=== PATIENT | female | born 1955 | race African-American/Black ===

== ENCOUNTER 2018-06-25 19:07 | Emergency (ER) | payer SELFPAY ==
--- NOTE | 2018-06-25 20:21 | RAD ---
LEFT HAND THREE VIEW: History: Pain. Comparison: None. FINDINGS: There is no acute fracture or malalignment. Soft tissues are unremarkable. There appears to be some mild caudad regression of the pisiform. Mild narrowing of the thumb carpal metacarpal joint as well as dorsal and lateral subluxation. Mild widening of the scapholunate interval. IMPRESSION: Chronic findings. No acute abnormality. POS: [facility]
== END 2018-06-25 21:25 | disposition home or self-care (01) ==
LOC: ERS 19:07
DX: M77.9 Enthesopathy, unspecified (principal); I10 Essential (primary) hypertension
CPT/HCPCS: 29125

== ENCOUNTER 2018-11-23 21:39 | Emergency (ER) | payer SELFPAY | END 2018-11-23 22:22 | disposition home or self-care (01) | LOC: ERS 21:39 | DX: Z01.30 Encounter for examination of blood pressure without abnormal findings (principal); R51 Headache; I10 Essential (primary) hypertension; F41.9 Anxiety disorder, unspecified; Z79.899 Other long term (current) drug therapy | CPT/HCPCS: 99283 ==

== ENCOUNTER 2019-03-01 16:26 | Emergency (ER) | payer SELFPAY ==
--- NOTE | 2019-03-01 16:54 | RAD ---
Exam: Chest one view HISTORY:Heart flutter Comparison: None FINDINGS: Cardiac silhouette: Normal Aorta: Unremarkable Pulmonary vessels: Normal Costophrenic angles: Clear LUNGS: No masses or consolidation. Pneumothorax: None Osseous abnormalities: None IMPRESSION: No acute cardiopulmonary process.
[2019-03-01] MEDS ORDERED: Ondansetron ODT 4 MG TAB ONE (17:02)
--- NOTE | 2019-03-01 17:14 | RAD ---
4 views of the right knee: 03/01/2019 COMPARISON: None HISTORY: Knee pain and swelling FINDINGS: No fracture or dislocation. No radiopaque foreign body or subcutaneous gas. IMPRESSION: No acute findings.
[2019-03-01 17:27] LABS: #Eosinphils 0.1 thou/uL (0.0-0.7); #Lymphocytes 3.5 thou/uL (1.20-3.40); #Monocytes 0.7 thou/uL (0.11-0.59); #Neutrophils 8.1 thou/uL (1.40-6.50); %Basophils 0.4 % (0.0-1.0); %Eosinophils 0.6 % (0.0-10.0); %Lymphocytes 28.5 % (21.0-51.0); %Monocytes 5.6 % (0.0-10.0); %Neutrophils 64.9 % (42.0-75.0); Hemoglobin 13.1 g/dL (12.0-16.0); Mean Corpuscular HGB CONC 32.8 g/dL (32.0-36.0); Mean Corpuscular Hemoglobin 29.6 pg (27.0-31.0); Mean Corpuscular Volume 90.1 fL (78.0-98.0); Mean Platelet Volume 6.6 fL (7.4-10.4); Platelet Count 382 thou/uL (130-400); RBC Distribution Width 13.9 % (11.5-14.5); Red Blood Cell (RBC) Count 4.42 mill/uL (4.20-5.40); White Blood Cell (WBC) Count 12.4 thou/uL (4.8-10.8)
[2019-03-01 17:46] LABS: ALT (SGPT) 14 U/L (8-55); AST (SGOT) 15 U/L (5-34); Albumin 4.1 g/dL (3.4-4.8); Alkaline Phosphatase 97 U/L (40-110); Anion Gap 11 mmol/L (10-20); BUN (Urea Nitrogen) 18 mg/dL (9.8-20.1); Bilirubin, Total 0.3 mg/dL (0.2-1.2); CK (CPK) 80 U/L (29-168); Calc. Creatinine Clearance 0 mL/min (70-130); Calcium 9.7 mg/dL (7.8-10.44); Carbon Dioxide 26 mmol/L (23-31); Chloride 107 mmol/L (98-107); Estimated GFR-MDRD 75; Globulin 3.8 g/dL (2.4-3.5); Glucose 81 mg/dL (80-115); Lipase 75 U/L (8-78); Magnesium 2.1 mg/dL (1.6-2.6); Potassium 3.8 mmol/L (3.5-5.1); Protein, Total 7.9 g/dL (6.0-8.3); Sodium 140 mmol/L (136-145)
== END 2019-03-01 18:46 | disposition home or self-care (01) ==
LOC: ERS 16:26
DX: E05.90 Thyrotoxicosis, unspecified without thyrotoxic crisis or storm (principal); I10 Essential (primary) hypertension; G47.30 Sleep apnea, unspecified; F41.9 Anxiety disorder, unspecified; R11.0 Nausea; Z79.899 Other long term (current) drug therapy
CPT/HCPCS: 71045; 80053; 82550; 83690; 83735; 84443; 84484; 85025; 93005; 94760; Q0162

== ENCOUNTER 2019-07-09 10:14 | Outpatient (CLI) | payer OTHER ==
--- NOTE | 2019-07-09 11:10 | MMO ---
Bilateral MAMMO Bilat Diag DDI+CARTER. CLINICAL HISTORY: Patient is 64 years old and is seen for diagnostic exam,palpable abnormality and pain in the left breast. The patient has no family history of breast cancer. The patient has no personal history of cancer. VIEWS: The views performed were: bilateral craniocaudal with tomosynthesis; bilateral mediolateral oblique with tomosynthesis; and bilateral mediolateral with tomosynthesis. FILMS COMPARED: The present examination has been compared to a prior imaging study performed at [facility] on 07/09/2019. This study has been interpreted with the assistance of computer-aided detection. MAMMOGRAM FINDINGS: There are scattered fibroglandular densities. Focal distortion at site of palpable mass. Ultrasound reveals hypoechoic mass. Biopsy recommended. In the right breast, there are no suspicious masses, calcifications or areas of architectural distortion. IMPRESSION: FINDING IN THE LEFT BREAST IS SUSPICIOUS. BIOPSY IS RECOMMENDED. THE RESULTS OF THIS EXAM WERE SENT TO THE PATIENT. ACR BI-RADS Category 4 - Suspicious abnormality - biopsy should be considered MAMMOGRAPHY NOTE: 1. A negative mammogram report should not delay a biopsy if a dominant of clinically suspicious mass is present. 2. Approximately 10% to 15% of breast cancers are not detected by mammography. 3. Adenosis and dense breasts may obscure an underlying neoplasm. Reported by: CAMERON ROBLES MD Electonically Signed: [id number]
--- NOTE | 2019-07-09 12:00 | ULT ---
ULTRASOUND LEFT BREAST: INDICATION: Ultrasound left breast performed to assess a palpable abnormality. Mammographic abnormality was also seen at this site. FINDINGS: There is a focal hypoechoic mass at 11 o'clock 4 cm from the nipple which corresponds to the palpable abnormality. It measures approximately 6 x 8 mm maximal dimension. It has an irregular border. Ul trasound-guided biopsy of this lesion is recommended. IMPRESSION: BIRADS 4, suspicious abnormality. Biopsy recommended. Findings discussed with Dr. Peng. CODE CR
== END 2019-07-09 10:15 | disposition home or self-care (01) ==
LOC: BICMAMMO 10:14
PROVIDERS: ATTEND Family Medicine
DX: N63.22 Unspecified lump in the left breast, upper inner quadrant (principal)
CPT/HCPCS: 77066; G0279

== ENCOUNTER → 2019-07-11 | Day surgery (SDC) | payer OTHER ==
--- NOTE | 2019-07-11 13:50 | MMO ---
Left Breast MAMMO Unilat Diag DDI LT. CLINICAL HISTORY: Patient is 64 years old and is seen for diagnostic exam. VIEWS: The views performed were: . FILMS COMPARED: The present examination has been compared to a prior imaging study performed at [facility] on 07/09/2019. This study has been interpreted with the assistance of computer-aided detection. MAMMOGRAM FINDINGS: There are scattered fibroglandular densities. Clip in inner upper left breast. IMPRESSION: FINDING IN THE LEFT BREAST IS CONFIRMED UTILIZING POST PROCEDURE MAMMOGRAM. THE RESULTS OF THIS EXAM WERE SENT TO THE PATIENT. MAMMOGRAPHY NOTE: 1. A negative mammogram report should not delay a biopsy if a dominant of clinically suspicious mass is present. 2. Approximately 10% to 15% of breast cancers are not detected by mammography. 3. Adenosis and dense breasts may obscure an underlying neoplasm. Reported by: LIU SNEED MD Electonically Signed: [id number]
--- NOTE | 2019-07-11 13:52 | ULT ---
EXAM: Ultrasound-guided left breast biopsy PROVIDED CLINICAL HISTORY: Left breast mass COMPARISON: Ultrasound and mammogram 07/09/2019 FINDINGS: Informed consent was obtained from the patient. Patient was placed on the sonography table in the sup ine position and the previously described 11:00 left breast mass was re-localized. The skin overlying this region was prepped and draped in the usual sterile manner. The soft tissues were infil trated with 1% buffered lidocaine. A small skin incision was made. Under continuous ultrasound guidance 3 core samples were obtained of the mass. Under continuous ultrasound guidance, a biopsy sit e marker was deployed adjacent to the mass. No immediate complications. Post biopsy mammograms demonstrate appropriate clip deployment. IMPRESSION: Technically successful ultrasound-guided left breast biopsy and clip placement. Please correlate with histology results to follow.
== END ==
LOC: BICULT 12:45
PROVIDERS: ATTEND Family Medicine
PROC: 0H9U3ZX Drainage of Left Breast, Percutaneous Approach, Diagnostic (ICD-10-PCS; principal; 2019-07-11)
DX: N63.22 Unspecified lump in the left breast, upper inner quadrant (principal); N64.1 Fat necrosis of breast
CPT/HCPCS: 19083; 88305

== ENCOUNTER 2019-08-28 10:35 | Outpatient (CLI) | payer OTHER ==
--- NOTE | 2019-08-29 12:13 | NM ---
RADIOIODINE THYROID UPTAKE AND SCAN: HISTORY: Hyperthyroidism. Free T3 is elevated measuring 4.14 (normal 1.7-3.7). TSH is low measuring 0.0048 (no rmal 0.35-4.94). RADIOPHARMACEUTICAL: 226 microcuries of Iodine-123 administered orally. FINDINGS: Planar anterior and both anterior oblique images of the thyroid gland demonstrate a focal hot nodule in the left lobe with decreased uptake in the remainder of the gland. The 24-hour uptake measures 27% (normal 10-30%). IMPRESSION: Findings are consistent with a toxic nodule. POS: [facility]
== END 2019-08-28 10:36 | disposition home or self-care (01) ==
LOC: NM 10:35
PROVIDERS: ATTEND Internal Medicine Endocrinology, Diabetes & Metabolism
DX: E05.90 Thyrotoxicosis, unspecified without thyrotoxic crisis or storm (principal)
CPT/HCPCS: 78014; A9516

== ENCOUNTER 2019-09-15 21:03 | Emergency (ER) | payer OTHER ==
--- NOTE | 2019-09-16 09:20 | ULT ---
LEFT LOWER EXTREMITY VENOUS DOPPLER ULTRASOUND: DATE: 09/15/2019. COMPARISON: None. HISTORY: Left leg pain, evaluate for DVT. TECHNIQUE: Multiplanar, mccord scale, sonographic imaging venous structures of the left lower extremity obtained w ith color flow and spectral analysis. FINDINGS: Left common femoral vein, greater saphenous vein, profunda femoral vein, femoral vein, popliteal vein , and posterior tibial vein are patent. Normal blood flow, augmentation, and compression with no michael dence for DVT of the left lower extremity. IMPRESSION: No evidence for deep venous thrombosis of the left lower extremity. POS: [facility]
== END 2019-09-15 23:53 | disposition home or self-care (01) ==
LOC: ERS 21:03
DX: M54.42 Lumbago with sciatica, left side (principal); I10 Essential (primary) hypertension; G47.00 Insomnia, unspecified; F41.9 Anxiety disorder, unspecified; Z79.899 Other long term (current) drug therapy

== ENCOUNTER 2019-10-01 12:16 | Outpatient (CLI) | payer OTHER ==
--- NOTE | 2019-10-01 13:11 | NM ---
Exam: Nuclear medicine I-131 treatment HISTORY: Toxic nodule COMPARISON: None Findings/technique: risk and benefits were discussed with the patient. Precautions to be taken were a lso discussed. After answering the patient's questions patient was administered 14.1 mCi of I-131 tablet orally. IMPRESSION: Patient was ministered I-131 for treatment of toxic nodule.
== END 2019-10-01 12:17 | disposition home or self-care (01) ==
LOC: NM 12:16
PROVIDERS: ATTEND Internal Medicine Endocrinology, Diabetes & Metabolism
DX: E05.10 Thyrotoxicosis with toxic single thyroid nodule without thyrotoxic crisis or storm (principal)
CPT/HCPCS: 79005; A9517

== ENCOUNTER 2020-02-05 08:12 | Outpatient (CLI) | payer OTHER ==
--- NOTE | 2020-02-05 09:33 | MMO ---
Left Breast MAMMO Unilat Diag DDI LT+CARTER. CLINICAL HISTORY: Patient is 64 years old and is seen for follow-up at short-interval from prior study and lump or thickening in the left breast. The patient has no family history of breast cancer. The patient has no personal history of cancer. The patient has a history of left Ultrasound Guided Core Biopsy in July, - benign. VIEWS: The views performed were: left craniocaudal with tomosynthesis; left mediolateral oblique with tomosynthesis; and left mediolateral with tomosynthesis. FILMS COMPARED: The present examination has been compared to prior imaging studies performed at [facility] on 07/09/2019, 07/11/2019 and 02/05/2020. This study has been interpreted with the assistance of computer-aided detection. MAMMOGRAM FINDINGS: There are scattered fibroglandular densities. Left biopsy clip. US WAS PERFORMED TO EVALUATE SITES OF PALPABLE CONCERN pLEASE SEE US REPORT. IMPRESSION: FINDING IN THE LEFT BREAST IS PROBABLY BENIGN. FOLLOW-UP IN 6 MONTHS IS RECOMMENDED. THE RESULTS OF THIS EXAM WERE SENT TO THE PATIENT. ACR BI-RADS Category 3 - Probably benign finding - short interval follow-up suggested. [facility] will notify the patient of the need for additional imaging services. MAMMOGRAPHY NOTE: 1. A negative mammogram report should not delay a biopsy if a dominant of clinically suspicious mass is present. 2. Approximately 10% to 15% of breast cancers are not detected by mammography. 3. Adenosis and dense breasts may obscure an underlying neoplasm. Reported by: PIA BLACKMON MD Electonically Signed: [id number]
--- NOTE | 2020-02-05 10:59 | ULT ---
LEFT BREAST ULTRASOUND: Date: 02/05/2020 HISTORY: Palpable abnormalities at the 10-11 o'clock position of the left breast. FINDINGS: Correlation is made with the mammogram of the same date. Sonographic evaluation of the region of palpable concern at the 10-11 o'clock position of the left br east demonstrates multiple hypoechoic nodules measuring up to 5.0 mm. No posterior shadowing is seen. Two of these measuring 2.0 mm and 3.0 mm, respectively, are cysts. The others have a more complex ap pearance. All these nodules are in addition to the previously biopsied nodule. IMPRESSION: BI-RADS Category 3 - Probably benign findings. A 6 month follow-up left diagnostic mammogram and left breast ultrasound are recommended. The facility will notify patient of need for additional imaging services. POS: OFF
== END 2020-02-05 08:13 | disposition home or self-care (01) ==
LOC: BICMAMMO 08:12
PROVIDERS: ATTEND Family Medicine
DX: R92.8 Other abnormal and inconclusive findings on diagnostic imaging of breast (principal)
CPT/HCPCS: G0279

== ENCOUNTER 2020-06-29 10:21 | Outpatient (CLI) | payer OTHER | END 2020-06-29 10:22 | disposition home or self-care (01) | LOC: BICRAD 10:21 | PROVIDERS: ATTEND Family Medicine | DX: R06.00 Dyspnea, unspecified (principal) | CPT/HCPCS: 71046 ==

== ENCOUNTER 2020-07-15 09:26 | Outpatient (CLI) | payer OTHER | END 2020-07-15 09:27 | disposition home or self-care (01) | LOC: BICMAMMO 09:26 | PROVIDERS: ATTEND Family Medicine | DX: R92.8 Other abnormal and inconclusive findings on diagnostic imaging of breast (principal) | CPT/HCPCS: 77066; G0279 ==

== ENCOUNTER 2020-09-19 15:55 | Emergency (ER) | payer OTHER ==
[~2020-09-19 15:55] MED LIST: Iopamidol-370 76% 500 ML 1 ML ONE
[2020-09-19 17:07] LABS: #Basophils 0.1 thou/uL (0.0-0.2); #Eosinphils 0.1 thou/uL (0.0-0.7); #Lymphocytes 2.6 thou/uL (1.20-3.40); #Monocytes 0.4 thou/uL (0.11-0.59); #Neutrophils 3.7 thou/uL (1.40-6.50); %Basophils 1.3 % (0.0-1.0); %Eosinophils 1.3 % (0.0-10.0); %Lymphocytes 37.8 % (21.0-51.0); %Monocytes 5.6 % (0.0-10.0); %Neutrophils 54.1 % (42.0-75.0); Hemoglobin 14.1 g/dL (12.0-16.0); Mean Corpuscular HGB CONC 34.9 g/dL (32.0-36.0); Mean Corpuscular Volume 91.8 fL (78.0-98.0); Mean Platelet Volume 6.1 fL (7.4-10.4); Platelet Count 365 thou/uL (130-400); RBC Distribution Width 14.8 % (11.5-14.5); Red Blood Cell (RBC) Count 4.42 mill/uL (4.20-5.40); White Blood Cell (WBC) Count 6.9 thou/uL (4.8-10.8)
[2020-09-19 17:31] LABS: ALT (SGPT) 10 U/L (8-55); AST (SGOT) 16 U/L (5-34); Albumin 4.3 g/dL (3.4-4.8); Alkaline Phosphatase 75 U/L (40-110); Anion Gap 15 mmol/L (10-20); BUN (Urea Nitrogen) 9 mg/dL (9.8-20.1); Bilirubin, Total 0.5 mg/dL (0.2-1.2); Calc. Creatinine Clearance 0 mL/min (70-130); Carbon Dioxide 26 mmol/L (23-31); Chloride 105 mmol/L (98-107); Globulin 3.9 g/dL (2.4-3.5); Glucose 112 mg/dL (80-115); Potassium 3.1 mmol/L (3.5-5.1); Protein, Total 8.2 g/dL (5.8-8.1); Sodium 143 mmol/L (136-145)
[2020-09-19 21:50] LABS: Troponin I Less than 0.010 ng/mL (< 0.028)
== END 2020-09-19 22:26 | disposition home or self-care (01) ==
LOC: ERS 15:55
DX: R00.2 Palpitations (principal); I10 Essential (primary) hypertension; E05.90 Thyrotoxicosis, unspecified without thyrotoxic crisis or storm; Z79.899 Other long term (current) drug therapy
CPT/HCPCS: 36415; 71045; 71275; 80053; 83690; 84443; 84484; 85025; 85379; 93005; Q9967

== ENCOUNTER 2021-02-26 09:29 | Outpatient (CLI) | payer BC | END 2021-02-26 09:30 | disposition home or self-care (01) | LOC: BICMAMMO 09:29 | PROVIDERS: ATTEND Family Medicine | DX: R92.8 Other abnormal and inconclusive findings on diagnostic imaging of breast (principal); N63.20 Unspecified lump in the left breast, unspecified quadrant | CPT/HCPCS: G0279 ==

== ENCOUNTER 2021-10-03 11:53 | Emergency (ER) | payer BC | END 2021-10-03 13:51 | disposition left against medical advice (07) | LOC: ERS 11:53 | DX: Z53.21 Procedure and treatment not carried out due to patient leaving prior to being seen by health care provider (principal) ==

== ENCOUNTER 2022-04-29 11:56 | Outpatient (CLI) | payer BC, MEDICARE | END 2022-04-29 11:57 | disposition home or self-care (01) | LOC: BICMAMMO 11:56 | PROVIDERS: ATTEND Family Medicine | DX: Z12.31 Encounter for screening mammogram for malignant neoplasm of breast (principal); Z91.89 Other specified personal risk factors, not elsewhere classified | CPT/HCPCS: 77063; 77067 ==